=== PATIENT | female | born 1975 ===

== ENCOUNTER 2017-03-06 13:50 | Emergency (ER) | payer OTHER ==
[2017-03-06 13:58] VITALS: BMI 21.7
--- NOTE | 2017-03-06 14:31 | C.PDOC ---
History Of Present Illness 41 yr old F c/o intermittent abdominal pain since yesterday mostly on the left side, had episode of chills last night associated with low back pain, however, not present now. Pt denies dysuria, vaginal discharge, n/v/d. (+)hx of constipation, BM usually qod. Last BM yesterday, firm, brown, no blood. Time Seen by Provider: 03/06/17 14:14 Chief Complaint (Nursing): Abdominal Pain History Per: Patient History/Exam Limitations: no limitations Onset/Duration Of Symptoms: Days (1) Current Symptoms Are (Timing): Better Pain Scale Rating Of: 2 Location Of Pain/Discomfort: LLQ Radiation Of Pain To:: Back (yesterday, no pain today) Past Medical History Reviewed: Historical Data, Nursing Documentation, Vital Signs Vital Signs: Last Vital Signs Temp 98 F 03/06/17 13:59 Pulse 84 03/06/17 13:59 Resp 18 03/06/17 13:59 BP 111/72 03/06/17 13:59 Pulse Ox 100 03/06/17 14:31 - Medical History PMH: No Chronic Diseases Surgical History: Appendectomy Family History: States: No Known Family Hx - Social History Hx Alcohol Use: No Hx Substance Use: No - Immunization History Hx Tetanus Toxoid Vaccination: No Hx Influenza Vaccination: No Hx Pneumococcal Vaccination: No Review Of Systems Except As Marked, All Systems Reviewed And Found Negative. Constitutional: Positive for: Chills. Negative for: Fever ENT: Negative for: Ear Pain Cardiovascular: Negative for: Chest Pain Respiratory: Negative for: Cough Gastrointestinal: Positive for: Abdominal Pain. Negative for: Nausea, Vomiting , Diarrhea Genitourinary: Negative for: Dysuria, Frequency, Incontinence Musculoskeletal: Negative for: Neck Pain Physical Exam - Physical Exam Appears: Well, Non-toxic, No Acute Distress Skin: Normal Color, Warm, Dry Head: Atraumatic, Normacephalic Eye(s): bilateral: Normal Inspection Ear(s): Bilateral: Normal Nose: Normal Oral Mucosa: Moist Tongue: Normal Appearing Lips: Normal Appearing Throat: Normal Neck: Normal Lymphatic: Normal Exam Chest: Symmetrical Cardiovascular: Rhythm Regular Respiratory: Normal Breath Sounds, No Rales, No Rhonchi Gastrointestinal/Abdominal: Normal Exam, Bowel Sounds, Soft, Tenderness ( minimal LLQ), No Distention, No Guarding Back: Normal Inspection, No CVA Tenderness, No Vertebral Tenderness Extremity: Bilateral: Atraumatic ED Course And Treatment - Laboratory Results Result Diagrams: 03/06/17 14:40 03/06/17 14:40 Lab Interpretation: No Acute Changes O2 Sat by Pulse Oximetry: 100 Pulse Ox Interpretation: Normal Progress Note: Minimal discomfort completely resolved post Toradol. Pt advised to start colace. Pain is most likely due to gas. Possible mild viral illness. Reassessment Condition: Improved Disposition Counseled Patient/Family Regarding: Studies Performed, Diagnosis, Need For Followup, Rx Given - Disposition Referrals: Adenike Toney MD [Staff Provider] - Disposition: HOME/ ROUTINE Disposition Time: 15:15 Condition: STABLE Additional Instructions: FOLLOW UP WITH PMD ON WEDNESDAY FOR RE-EVALUATION. IF SYMPTOMS GET WORSE OR ANY NEW CONCERNING SYMPTOMS DEVELOP RETURN TO ED. Prescriptions: Docusate [Colace] 1 cap PO TID #60 cap Instructions: Acute Abdominal Pain (ED), Constipation (ED) Forms: General Discharge Instructions - Clinical Impression Clinical Impression: Abdominal pain, Constipation
[2017-03-06 14:48] LABS: BASO # 0.1 K/uL (0.0-0.2); BASO % 1.1 % (0.0-2.0); EOS # 0.2 K/uL (0.0-0.7); HEMATOCRIT 36.9 % (34.0-47.0); LYMPH # 1.5 K/uL (1.0-4.3); LYMPH % 30.4 % (20.0-40.0); MEAN CELL VOLUME 90.8 fL (81.0-99.0); MEAN CORPUSCULAR HGB CONC 34.1 g/dL (33.0-37.0); MEAN PLATELET VOLUME 6.8 fL (7.2-11.7); MONO # 0.8 K/uL (0.0-0.8); MONO % 15.5 % (0.0-10.0)
[2017-03-06 14:52] LABS: RBC URINE 1 /hpf (0-3); URINE BILIRUBIN NEGATIVE (NEGATIVE); URINE BLOOD NEGATIVE (NEGATIVE); URINE COLOR Yellow (YELLOW); URINE GLUCOSE (UA) NORMAL (Normal); URINE KETONE NEGATIVE (NEGATIVE); URINE LEUKOCYTE ESTERASE NEG Leu/uL (Negative); URINE PROTEIN NEGATIVE (NEGATIVE); URINE UROBILINOGEN NORMAL mg/dL (0.2-1.0)
[2017-03-06 14:53] LABS: CHLORIDE 102 mmol/L (98-107)
[2017-03-06 14:54] LABS: POTASSIUM 3.7 mmol/L (3.6-5.2); SODIUM 139 mmol/L (132-148)
[2017-03-06 14:56] LABS: ALB/GLOB RATIO 1.4 (1.0-2.1); ALKALINE PHOSPHATASE 54 U/L (38-126); AST/SGOT 40 U/L (14-36); BILIRUBIN,TOTAL 0.4 mg/dL (0.2-1.3); BLOOD UREA NITROGEN 11 mg/dL (7-17); CARBON DIOXIDE 28 mmol/L (22-30); GFR AFRICAN-AMERICAN > 60; TOTAL PROTEIN 7.3 g/dL (6.3-8.3)
[2017-03-06 14:57] LABS: ALT/SGPT 37 U/L (9-52); CALCIUM 8.8 mg/dl (8.6-10.4); GLUCOSE,RANDOM 97 mg/dL (65-105)
[2017-03-06 15:25] VITALS: BP 105/68; PULSE 74; RESP 16; TEMP 98.2; O2SAT 98
== END 2017-03-06 15:40 | disposition home or self-care (01) ==
LOC: C.ER 13:50
DX: K59.00 Constipation, unspecified (principal); R10.32 Left lower quadrant pain
CPT/HCPCS: 80053; 81001; 83690; 84703; 85025; 96374; 99284; J1885

== ENCOUNTER 2018-11-15 01:30 | Emergency (ER) | payer OTHER, BC ==
[2018-11-15 01:30] VITALS: BMI 21.7
[2018-11-15 01:43] VITALS: RESP 20; O2SAT 96
--- NOTE | 2018-11-15 02:37 | C.PDOC ---
History Of Present Illness 43 year old female presents to the ED for a ring removal. Patient reports her wedding ring is stuck in her left ring finger associated with some swelling to the area. Patient denies injury, trauma, rash, weakness, numbness. Time Seen by Provider: 11/15/18 01:48 Chief Complaint (Nursing): Finger,Hand,&Wrist History Per: Patient History/Exam Limitations: no limitations Onset/Duration Of Symptoms: Hrs Current Symptoms Are (Timing): Still Present Quality: Tightness Recent travel outside of the [place]: No Additional History Per: Patient Past Medical History Reviewed: Historical Data, Nursing Documentation, Vital Signs Vital Signs: Last Vital Signs Temp 98 F 11/15/18 01:38 Pulse 77 11/15/18 01:38 Resp 20 11/15/18 01:38 BP 168/107 H 11/15/18 01:38 Pulse Ox 96 11/15/18 01:38 - Medical History PMH: No Chronic Diseases Surgical History: Appendectomy Family History: States: Unknown Family Hx - Social History Hx Alcohol Use: No Hx Substance Use: No - Immunization History Hx Tetanus Toxoid Vaccination: Yes Hx Influenza Vaccination: Yes Hx Pneumococcal Vaccination: No Review Of Systems Constitutional: Negative for: Fever, Chills Gastrointestinal: Negative for: Nausea, Vomiting Musculoskeletal: Positive for: Hand Pain. Negative for: Arm Pain Skin: Negative for: Rash Neurological: Negative for: Weakness, Numbness Physical Exam - Physical Exam Appears: Non-toxic, No Acute Distress Skin: Normal Color, Warm, Dry Head: Atraumatic, Normacephalic Eye(s): bilateral: Normal Inspection Neck: Normal ROM, Supple Extremity: Normal ROM, No Tenderness, Capillary Refill (< 2 seconds), No Deformity, Swelling (left 4th finger localized around 2 rings) Pulses: Left Radial: Normal, Right Radial: Normal Neurological/Psych: Oriented x3, Normal Speech, Normal Cognition Gait: Steady ED Course And Treatment O2 Sat by Pulse Oximetry: 96 (ON RA) Pulse Ox Interpretation: Normal Progress Note: Patient's ring was removed using a ring cutter. Patient tolerated the procedure well, patient did not had any laceration or brusing after removal. Patient remained neurovascular intact. Disposition - Disposition Referrals: [facility] at [facility] [Outside] Disposition: HOME/ ROUTINE Disposition Time: 02:35 Condition: STABLE Additional Instructions: Please keep any rings off for a few days May apply cold compress on and off as needed for 1-2 days Return to ER if worse Forms: [facility] (Spanish), General Discharge Instructions - Clinical Impression Clinical Impression: Foreign body of left ring finger - PA / [employer] / Resident Statement MD/DO has reviewed & agrees with the documentation as recorded. - Scribe Statement The provider has reviewed the documentation as recorded by the Scribe Roberto Rossi All medical record entries made by the Scribe were at my direction and personally dictated by me. I have reviewed the chart and agree that the record accurately reflects my personal performance of the history, physical exam, medical decision making, and the department course for this patient. I have also personally directed, reviewed, and agree with the discharge instructions and disposition.
[2018-11-15 02:38] VITALS: BP 129/73; PULSE 85; TEMP 97.6
== END 2018-11-15 02:47 | disposition home or self-care (01) ==
LOC: C.ER 01:30
DX: S60.455A Superficial foreign body of left ring finger, initial encounter (principal); W49.04XA Ring or other jewelry causing external constriction, initial encounter